=== PATIENT | male | born 1975 | race Caucasian/White ===

== ENCOUNTER 2017-07-10 19:54 | Emergency (ER) | payer OTHER ==
[~2017-07-10] VITALS: Ht 180.3 cm; Wt 158.8 kg
[~2017-07-10 19:54] MED LIST: BACLOFEN20 M1 PO; BYSTOLIC20 M1 PO; BYSTOLIC5 M1 PO; CELEBREX100 M1 PO; CELECOXIB200 M1 PO; DIAZEPAM5 MG PO; IBUPROFEN800 M1 PO; OXYCODONE HCL15 M1 PO; OXYCONTIN20 M1 PO
--- NOTE | 2017-07-10 20:26 | ED SYNCOPE COMPLAINT ---
History of Present Illness General Chief Complaint: Syncope and Near-Syncope Stated Complaint: SYNCOPE,FEVER,COUGH Source: patient Exam Limitations: no limitations Vital Signs & Intake/Output Vital Signs & Intake/Output Vital Signs Date Time Temp Pulse Resp B/P B/P Pulse O2 O2 Flow FiO2 Mean Ox Delivery Rate 07/10 2311 97.9 67 16 128/64 97 Room Air 07/10 2310 97.9 07/10 2042 100.4 07/10 2042 100.5 75 18 136/75 97 Room Air ED Intake and Output 07/11 0000 07/10 1200 Intake Total 120 Output Total Balance 120 Intake, Oral 120 Patient 350 lb Weight Allergies Coded Allergies: NO KNOWN ALLERGIES (07/08/14) Reconcile Medications Baclofen 20 MG TABLET 1 TAB PO TID PRN PAIN Celecoxib 200 MG CAPSULE 1 CAP PO BID INFLAMMATION (Reported) Ibuprofen 800 MG TABLET 1 TAB PO TID PRN PAIN Nebivolol HCl (Bystolic) 5 MG TABLET 1 TAB PO DAILY BP (Reported) Oxycodone HCl 15 MG TABLET 1 TAB PO 4XDP PRN PAIN (Reported) Oxycodone HCl (Oxycontin) 20 MG TAB.ER.12H 1 TAB PO BID PAIN (Reported) Prednisone 50 MG TABLET 1 TAB PO DAILY BRONCHITIS Promethazine HCl/Codeine (Promethazine-Codeine Syrup) 6.25 MG-10 MG/5 ML SYRUP 5-10 ML PO Q4-6 PRN COUGH Triage Nurses Notes Reviewed? yes Timing: recent history Precipitating Factors: coughing Context: "I've been coughing real bad." Episode Description: see below Loss of Consciousness: brief (seconds) Associated Symptoms: cough HPI: 41 yo gentleman with 3 weeks of cough, w/ productive phlegm. "I cough so hard that I pass out. " He notes feeling lightheaded and weak. "Tonight, I was sitting on the sofa and coughing so much I got lightheaded and then feel forward and hit my head. I think I passed out a little bit." No headache. He notes that he saw his PMD 3 days ago, was given antibiotics and tessalon perles. He notes that the cough continues but that he has no fever, chills, chest pain, diaphoresis. Past History Travel History Traveled to [place] past 21 day No Medical History Any Pertinent Medical History? 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 No Review of Systems Review of Systems Constitutional: Reports: no symptoms. EENTM: Reports: no symptoms. Respiratory: Reports: no symptoms. Cardiovascular: Reports: no symptoms. GI: Reports: no symptoms. Genitourinary: Reports: no symptoms. Musculoskeletal: Reports: no symptoms. Skin: Reports: no symptoms. Neurological/Psychological: Reports: no symptoms. All Other Systems: Reviewed and Negative Physical Exam Physical Exam General Appearance: well developed/nourished, no apparent distress Head: atraumatic, normal appearance Eyes: Bilateral: normal appearance, PERRL, EOMI. Ears, Nose, Throat: uvula w/ exudate. no tonsillar hypertrophy. , otherwise benign Neck: normal inspection, supple, full range of motion Respiratory: normal breath sounds, chest non-tender, no respiratory distress, quiet respiration, lungs clear Cardiovascular: regular rate/rhythm Gastrointestinal: normal bowel sounds, soft, non-tender, no organomegaly Extremities: normal inspection, normal capillary refill, normal range of motion, no edema Psychiatric: awake, alert, oriented x 3 Cranial Nerves: normal hearing, normal speech, PERRL Coordination/Gait: normal finger to nose, normal gait Motor/Sensory: no motor/sensory deficits Skin: intact, normal color, warm/dry Core Measures ACS in differential dx? No CVA/TIA Diagnosis: No Sepsis Present: No Sepsis Focused Exam Completed? No Progress Differential Diagnosis: orthostatic syncope, subarachnoid hem., vasodepressor syncope Plan of Care: Orders Procedure Date/time Status THROAT CULTURE W/QUICK STREP 07/10 2025 Active RAPID VIRAL INFLUENZA A 07/10 2010 Complete TROPONIN LEVEL 07/10 2006 Complete LIPASE 07/10 2006 Complete HEPATIC FUNCTION PANEL 07/10 2006 Complete CBC WITHOUT DIFFERENTIAL 07/10 2006 Complete BASIC METABOLIC PANEL 07/10 2006 Complete AMYLASE 07/10 2006 Complete EKG 07/10 2001 Active Laboratory Tests 07/10/17 2019: Anion Gap 12, Estimated GFR > 60, BUN/Creatinine Ratio 11.0, Glucose 101 H, Calcium 8.7, Total Bilirubin 0.4, Direct Bilirubin 0.2, AST 18, ALT 33, Alkaline Phosphatase 94, Troponin I < 0.01, Total Protein 6.6, Albumin 4.0, Amylase 39, Lipase 62, CBC w Diff NO MAN DIFF REQ, RBC 4.53 L, MCV 86.2, MCH 28.9, MCHC 33.6, RDW 13.0, MPV 7.6, Gran % 74.5, Lymphocytes % 17.0 L, Monocytes % 6.1, Eosinophils % 2.0, Basophils % 0.4, Absolute Granulocytes 7.4 H, Absolute Lymphocytes 1.7, Absolute Monocytes 0.6, Absolute Eosinophils 0.2, Absolute Basophils 0 Microbiology 07/10 2043 NASOPHARYN: Influenza Virus A & B Rapid Smear - COMP Diagnostic Imaging: Viewed by Me: Radiology Read, CT Scan. Discussed w/RAD: Radiology Read, CT Scan. Radiology Impression: PATIENT: DIMITRY ELLISON PRESENT AGE: 41 PATIENT ACCOUNT NO: [id number] : 76 LOCATION: [facility] ORDERING PHYSICIAN: Stanley Almanza MD SERVICE DATE: 07/10/17-2025 EXAM TYPE: CAT - CT HEAD WO IV CONTRAST EXAMINATION: CT HEAD WITHOUT CONTRAST CLINICAL INFORMATION: Trauma and syncope. COMPARISON: None TECHNIQUE: Contiguous axial imaging was performed from the skull base to vertex without intravenous administration of contrast. DLP: 630.56 mGy-cm FINDINGS: There is no evidence of acute intracranial hemorrhage or territorial infarction. No abnormal mass effect or midline shift is seen. Blake to white matter differentiation is well preserved. No extra-axial fluid collections are identified. The ventricles are normal in size. There is no abnormal attenuation within the brain parenchyma. The osseous structures and soft tissues are normal. The mastoid air cells and visualized portions of the paranasal sinuses are well aerated. IMPRESSION: No acute intracranial pathology. DICTATED BY: Tiburcio Solomon MD DATE/TIME DICTATED :07/10/172204 PACKAGER OR PACKER AND WEIGHER:CHARLETTE DATE/TIME TRANSCRIBED:07/10/172204 CONFIDENTIAL, DO NOT COPY WITHOUT APPROPRIATE AUTHORIZATION. < Electronically signed in Other Vendor System> SIGNED BY: Tiburcio Solomon MD 07/10/172210 CXR Impression: PATIENT: DIMITRY ELLISON PRESENT AGE: 41 PATIENT ACCOUNT NO: [id number] : 77 LOCATION: [facility] ORDERING PHYSICIAN: Stanley Almanza MD SERVICE DATE: 07/10/17 EXAM TYPE: RAD - XRY-CHEST XRAY, TWO VIEWS EXAMINATION: XR CHEST CLINICAL INFORMATION: Dyspnea and cough. COMPARISON: History of 07/08/2017. TECHNIQUE: 2 views of the chest were obtained. FINDINGS: The lungs are clear. No pleural effusion. Cardiomediastinal silhouette and pulmonary vasculature are within normal limits. No acute osseous findings. IMPRESSION: No acute cardiopulmonary disease. DICTATED BY: Tiburcio Solomon MD DATE/TIME DICTATED:07/10/172128 PACKAGER OR PACKER AND WEIGHER:CHARLETTE DATE/TIME TRANSCRIBED:07/10/172128 CONFIDENTIAL, DO NOT COPY WITHOUT APPROPRIATE AUTHORIZATION. <Electronically signed in Other Vendor System> SIGNED BY: Tiburcio Solomon MD 07/10/172132 Initial ED EKG: nsr, no acute changes. Departure Departure Disposition: HOME OR SELF CARE Condition: Stable Clinical Impression Primary Impression: Cough Secondary Impressions: Bronchitis, Syncope Referrals: Candido Barahona MD (PCP/Family) Departure Forms: Customer Survey General Discharge Information Prescriptions: Current Visit Scripts Prednisone 1 TAB PO DAILY #4 TAB Promethazine HCl/Codeine (Promethazine-Codeine Syrup) 5-10 ML PO Q4-6 PRN COUGH #120 ML Comments 07/11/17, 0:35... pt feels well, benign labs, ekg, cxr.... pt's syncope story is in context of excessive coughing... I doubt cardiac issues... will intensify treatment... close follow up advised.
[2017-07-10 20:38] LABS: ABSOLUTE BASOPHIL COUNT 0 /CUMM (0.0-0.2); ABSOLUTE EOSINOPHIL COUNT 0.2 /CUMM (0.0-0.7); ABSOLUTE GRANULOCYTE CT 7.4 /CUMM (1.4-6.5); ABSOLUTE LYMPH COUNT 1.7 /CUMM (1.2-3.4); ABSOLUTE MONOCYTE COUNT 0.6 /CUMM (0.10-0.60); BASOPHIL % 0.4 % (0.0-2.0); GRANULOCYTE % 74.5 % (42.2-75.2); HEMATOCRIT 39.1 % (42-52); MEAN CORPUSCULAR HGB 28.9 PG (27.0-31.0); MEAN CORPUSCULAR HGB CONC 33.6 G/DL (33.0-37.0); MEAN CORPUSCULAR VOLUME 86.2 FL (80.0-94.0); MEAN PLATELET VOLUME 7.6 FL (7.4-10.4); PLATELET COUNT 220 /CUMM (130-400); RED BLOOD CELL CT 4.53 /CUMM (4.70-6.10)
--- NOTE | 2017-07-10 21:33 | RADIOLOGY REPORT ---
EXAMINATION: XR CHEST CLINICAL INFORMATION: Dyspnea and cough. COMPARISON: History of 07/08/2017. TECHNIQUE: 2 views of the chest were obtained. FINDINGS: The lungs are clear. No pleural effusion. Cardiomediastinal silhouette and pulmonary vasculature are within normal limits. No acute osseous findings. IMPRESSION: No acute cardiopulmonary disease.
--- NOTE | 2017-07-10 22:11 | CT SCAN REPORT ---
EXAMINATION: CT HEAD WITHOUT CONTRAST CLINICAL INFORMATION: Trauma and syncope. COMPARISON: None TECHNIQUE: Contiguous axial imaging was performed from the skull base to vertex without intravenous administration of contrast. DLP: 630.56 mGy-cm FINDINGS: There is no evidence of acute intracranial hemorrhage or territorial infarction. No abnormal mass effect or midline shift is seen. Blake to white matter differentiation is well preserved. No extra-axial fluid collections are identified. The ventricles are normal in size. There is no abnormal attenuation within the brain parenchyma. The osseous structures and soft tissues are normal. The mastoid air cells and visualized portions of the paranasal sinuses are well aerated. IMPRESSION: No acute intracranial pathology.
[2017-07-10 23:12] VITALS: BP 128/64
[2017-07-11] MEDS ORDERED: PROMETHAZINE-C118 ML PO (00:37)
[2017-07-11] MEDS ORDERED: PREDNISONE50 M1 PO (00:37)
== END 2017-07-11 00:45 ==
LOC: ERH 19:54
PROVIDERS: Pediatrics
DX: R55 Syncope and collapse (principal); J40 Bronchitis, not specified as acute or chronic
CPT/HCPCS: 71046; 87804; 87804-59; 93005; 93010

== ENCOUNTER 2017-09-15 17:39 | Emergency (ER) | payer OTHER ==
[~2017-09-15] VITALS: Ht 180.3 cm; Wt 158.8 kg
[~2017-09-15 17:39] MED LIST changes: +PREDNISONE50 M1 PO; +PROMETHAZINE-C118 ML PO
--- NOTE | 2017-09-15 19:57 | ED UPPER/LOWER EXTREMITY COMPL ---
History of Present Illness General Chief Complaint: Lower Extremity Problems Stated Complaint: SWELLING TO R LEG /FEVER Source: patient Exam Limitations: no limitations Vital Signs & Intake/Output Vital Signs & Intake/Output Vital Signs Date Time Temp Pulse Resp B/P B/P Pulse O2 O2 Flow FiO2 Mean Ox Delivery Rate 09/15 2145 88 134/62 09/15 1800 98.1 77 20 144/81 96 Room Air Allergies Coded Allergies: NO KNOWN ALLERGIES (07/08/14) Reconcile Medications Baclofen 20 MG TABLET 1 TAB PO TID PRN PAIN Celecoxib 200 MG CAPSULE 1 CAP PO BID INFLAMMATION (Reported) Cephalexin (Keflex) 500 MG CAPSULE 1 CAP PO 4 TIMES/DAY INFECTION Ibuprofen 800 MG TABLET 1 TAB PO TID PRN PAIN Ibuprofen 800 MG TABLET 1 TAB PO TID PRN pain Nebivolol HCl (Bystolic) 5 MG TABLET 1 TAB PO DAILY BP (Reported) Oxycodone HCl 15 MG TABLET 1 TAB PO 4XDP PRN PAIN (Reported) Oxycodone HCl (Oxycontin) 20 MG TAB.ER.12H 1 TAB PO BID PAIN (Reported) Prednisone 50 MG TABLET 1 TAB PO DAILY BRONCHITIS Promethazine HCl/Codeine (Promethazine-Codeine Syrup) 6.25 MG-10 MG/5 ML SYRUP 5-10 ML PO Q4-6 PRN COUGH Sulfamethoxazole/Trimethoprim (Bactrim Ds Tablet) 800 MG-160 MG TABLET 1 TAB PO BID INFECION Triage Note: PT TO ED C/O RIGHT LEG PAIN X A FEW DAYS. H/O VERICOSE VEINS. HAS AN APPT [facility] A NEW VASCULAR DOCTOR ON 09/20. STATES PAIN RADIATES FROM CALF UP TO BACK OF THIGH. "PAIN GETS SO BAD AT TIMES I COULD PASS OUT". Triage Nurses Notes Reviewed? yes Onset: Gradual Duration: day(s):, getting worse Timing: recent history Severity: mild Pain/Injury Location: Right: Leg. Modifying Factors: Improves With: rest. Worsens With: movement. Associated Symptoms: redness HPI: 42 yo gentleman h/o varicose veins presents with right leg swelling, redness, and tenderness in inner thigh in the area of his long-standing varicose veins for the past 3 days. He notes that he felt warm yesterday. He is otherwise well. Past History Travel History Traveled to [place] past 21 day No Medical History Any Pertinent Medical History? 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 No Review of Systems Review of Systems Constitutional: Reports: no symptoms. EENTM: Reports: no symptoms. Respiratory: Reports: no symptoms. Cardiovascular: Reports: no symptoms. Gastrointestinal/Abdominal: Reports: no symptoms. Genitourinary: Reports: no symptoms. Musculoskeletal: Reports: no symptoms. Skin: Reports: no symptoms. Neurological/Psychological: Reports: no symptoms. Hematologic/Endocrine: Reports: no symptoms. Immunological: Reports: no symptoms. All Other Systems: Reviewed and Negative Physical Exam Physical Exam General Appearance: well developed/nourished, mild distress Head: atraumatic Eyes: Bilateral: normal appearance. Ears, Nose, Throat: normal pharynx, normal ENT inspection, hearing grossly normal Neck: normal inspection, supple Cardiovascular/Respiratory: regular rate/rhythm Back: normal inspection Leg Right: signficant varicose veins on right leg. Right medial thigh with erythema, tenderness, mild induration extending for 30cm. Skin: intact, normal color, warm/dry Lymphatic: no anterior cervical joseph Progress Differential Diagnosis: phlebitis vs cellulitis vs dvt Plan of Care: Orders Procedure Date/time Status COMPREHENSIVE METABOLIC PANEL 09/15 1957 Complete CBC WITHOUT DIFFERENTIAL 09/15 1957 Complete Laboratory Tests 09/15/17 2011: Anion Gap 12, Estimated GFR > 60, BUN/Creatinine Ratio 23.3, Glucose 99, Calcium 9.7, Total Bilirubin 0.6, AST 22, ALT 38, Alkaline Phosphatase 101, Total Protein 7.9, Albumin 4.8, Globulin 3.1, Albumin/Globulin Ratio 1.5, CBC w Diff NO MAN DIFF REQ, RBC 5.09, MCV 85.8, MCH 29.0, MCHC 33.8, RDW 13.4, MPV 7.8, Gran % 70.0, Lymphocytes % 22.9, Monocytes % 5.1, Eosinophils % 1.6, Basophils % 0.4, Absolute Granulocytes 7.6 H, Absolute Lymphocytes 2.5, Absolute Monocytes 0.6, Absolute Eosinophils 0.2, Absolute Basophils 0 Diagnostic Imaging: Viewed by Me: Ultrasound. Discussed w/RAD: Ultrasound. Radiology Impression: PATIENT: DIMITRY ELLISON PRESENT AGE: 42 PATIENT ACCOUNT NO: [id number] : 77 LOCATION: [facility] ORDERING PHYSICIAN: Stanley Almanza MD SERVICE DATE: 09/15/17 EXAM TYPE: US - US-UNILATERAL VENOUS DOPPLER EXAMINATION: US TRIPLEX LOWER EXTREMITY, RIGHT CLINICAL INFORMATION: Pain and edema. COMPARISON: None TECHNIQUE: Color-flow triplex imaging with spectral analysis and compression Doppler were performed on the lower extremity. FINDINGS: Respiratory variation, normal compression and augmented flow are noted throughout the right lower extremity. The visualized common femoral vein, superficial femoral vein, profunda femoral vein, popliteal vein and midcalf peroneal and posterior tibial venous segments show no evidence of deep venous thrombosis. There is no Blackburn's cyst. IMPRESSION: No evidence of deep venous thrombosis involving the right lower extremity. DICTATED BY: Nikita Peoples MD DATE/TIME DICTATED:09/15/172111 BOW STAPLER:CHARLETTE DATE/TIME TRANSCRIBED:09/15/172111 CONFIDENTIAL, DO NOT COPY WITHOUT APPROPRIATE AUTHORIZATION. <Electronically signed in Other Vendor System> SIGNED BY: Nikita Peoples MD 09/15/172115 Departure Departure Disposition: HOME OR SELF CARE Condition: Stable Clinical Impression Primary Impression: Phlebitis Secondary Impressions: Cellulitis Referrals: Candido Barahona MD (PCP/Family) Departure Forms: Customer Survey General Discharge Information Prescriptions: Current Visit Scripts Cephalexin (Keflex) 1 CAP PO 4 TIMES/DAY #40 CAP Sulfamethoxazole/Trimethoprim (Bactrim Ds Tablet) 1 TAB PO BID #20 TAB Ibuprofen 1 TAB PO TID PRN pain #30 TAB Comments pt with benign u/s , normal wbc count... pt to take abx and follow up in 1-2 days for recheck.... discussed at length.
[2017-09-15 20:32] LABS: ABSOLUTE BASOPHIL COUNT 0 /CUMM (0.0-0.2); ABSOLUTE EOSINOPHIL COUNT 0.2 /CUMM (0.0-0.7); ABSOLUTE GRANULOCYTE CT 7.6 /CUMM (1.4-6.5); ABSOLUTE LYMPH COUNT 2.5 /CUMM (1.2-3.4); ABSOLUTE MONOCYTE COUNT 0.6 /CUMM (0.10-0.60); BASOPHIL % 0.4 % (0.0-2.0); EOSINOPHIL % 1.6 % (0-5); HEMATOCRIT 43.7 % (42-52); MEAN CORPUSCULAR HGB CONC 33.8 G/DL (33.0-37.0); MEAN CORPUSCULAR VOLUME 85.8 FL (80.0-94.0); MEAN PLATELET VOLUME 7.8 FL (7.4-10.4); PLATELET COUNT 234 /CUMM (130-400); RBC DISTRIBUTION WIDTH 13.4 % (11.5-14.5); RED BLOOD CELL CT 5.09 /CUMM (4.70-6.10); WHITE BLOOD CELL COUNT 10.8 /CUMM (4.8-10.8)
--- NOTE | 2017-09-15 21:16 | ULTRASOUND REPORT ---
EXAMINATION: US TRIPLEX LOWER EXTREMITY, RIGHT CLINICAL INFORMATION: Pain and edema. COMPARISON: None TECHNIQUE: Color-flow triplex imaging with spectral analysis and compression Doppler were performed on the lower extremity. FINDINGS: Respiratory variation, normal compression and augmented flow are noted throughout the right lower extremity. The visualized common femoral vein, superficial femoral vein, profunda femoral vein, popliteal vein and midcalf peroneal and posterior tibial venous segments show no evidence of deep venous thrombosis. There is no Blackburn's cyst. IMPRESSION: No evidence of deep venous thrombosis involving the right lower extremity.
[2017-09-15] MEDS ORDERED: BACTRIM DS TAB1 EACH PO (21:30)
[2017-09-15] MEDS ORDERED: KEFLEX500 M1 PO (21:30)
[2017-09-15] MEDS ORDERED: IBUPROFEN800 M1 PO (21:31)
[2017-09-15 21:45] VITALS: BP 134/62
== END 2017-09-15 21:46 ==
LOC: ERH 17:39
PROVIDERS: Pediatrics
DX: I80.9 Phlebitis and thrombophlebitis of unspecified site (principal); L03.115 Cellulitis of right lower limb
CPT/HCPCS: 96374; J0690